=== PATIENT | female | born 1950 | race Native Hawaiian/Other Pacific Islander ===

== ENCOUNTER → 2016-09-18 | Outpatient (CLI) | payer OTHER ==
--- NOTE | 2016-09-18 13:41 | CT ---
EXAM DESCRIPTION: CT CHEST WITH IV CONTRAST CLINICAL HISTORY: 66 y/o F, SHORTNESS OF BREATH COMPARISON: 30 August 2016 TECHNIQUE: Thin-section axial CT images are obtained during rapid bolus administration of 100 mL of IV contrast media. Reconstructed MPR images are created and reviewed as well. FINDINGS: Anterior chest wall contusion has resolved. No rib fracture is observed. Sternum is unremarkable. The lungs are clear. No infiltrate effusion or nodule is seen. There is moderate cardiomegaly. Pulmonary vessels unremarkable. IMPRESSION: 1. Resolved right upper lobe opacity 2. Resolved chest wall contusion 3. Moderate cardiomegaly Electronically signed by: Harjinder Harry MD 09/18/2016 13:39
== END ==
LOC: CT 09:55
PROVIDERS: ATTEND Nurse Practitioner Family
DX: R06.02 Shortness of breath (principal); I51.7 Cardiomegaly